=== PATIENT | female | born 1950 | race Two or more races ===

== ENCOUNTER 2019-11-30 03:32 | Emergency (ER) | payer OTHER ==
[~2019-11-30] VITALS: Ht 157.5 cm; Wt 67.1 kg
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
[2019-11-30] MEDS ORDERED: ACETAMINOPHEN 325 MG TABLET ONE (04:18)
[2019-11-30] MEDS ORDERED: IBUPROFEN 400 MG TABLET ONE (04:18)
--- NOTE | 2019-11-30 04:22 | NUR ---
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
[2019-11-30] MEDS ORDERED: ACETAMINOPHEN 325 MG TABLET PO ONE (04:30)
[2019-11-30] MEDS ORDERED: IBUPROFEN 400 MG TABLET PO ONE (04:30)
--- NOTE | 2019-11-30 05:10 | NUR ---
Patient discharged to home in stable condition. Written and verbal after care instructions given. Patient verbalizes understanding of instruction.
[2019-11-30 05:11] VITALS: BP 148/85
== END 2019-11-30 05:12 | disposition home or self-care (01) ==
LOC: ER 03:40
DX: S20.212A Contusion of left front wall of thorax, initial encounter (principal); S20.02XA Contusion of left breast, initial encounter; S80.12XA Contusion of left lower leg, initial encounter; S80.11XA Contusion of right lower leg, initial encounter; S00.532A Contusion of oral cavity, initial encounter; I10 Essential (primary) hypertension; E78.5 Hyperlipidemia, unspecified; E11.9 Type 2 diabetes mellitus without complications; V49.49XA Driver injured in collision with other motor vehicles in traffic accident, initial encounter; Y93.89 Activity, other specified; Y92.488 Other paved roadways as the place of occurrence of the external cause; Y99.8 Other external cause status
CPT/HCPCS: 71045-TC